=== PATIENT | female | born 1965 | race Two or more races ===

== ENCOUNTER → 2016-05-16 | Day surgery (SDC) | payer OTHER ==
[~2016-05-16] MED LIST: BUPIVACAINE/EPINEPHRINE 0.5% PF 30 ML VIAL ONE; CIPR500T4 PO; FLAG500T PO; HEPARIN SODIUM - IV 10,000 UNITS/10 ML VIAL ONE; LACTATED RINGER'S 1000 ML INJ 1,000 ML ONE; MIDAZOLAM HCL 2 MG/2 ML VIAL ONE; PERC10TA27 PO; PROPOFOL 500 MG/50 ML BTL IV ONE; SODIUM CHLORIDE 0.9% INJ 10 ML ONE; ceFAZolin 2 GM PREMIX 50 ML ONE
--- NOTE | 2016-06-03 15:28 | TN ---
cc: CHATO ARREDONDO M.D. DATE OF SURGERY: 05/16/2016. PREOPERATIVE DIAGNOSIS: Metastatic left breast cancer. POSTOPERATIVE DIAGNOSIS: Metastatic left breast cancer. OPERATIVE PROCEDURE PERFORMED: Right subclavian Infusaport. SURGEON: Chato Arredondo MD. ANESTHESIA: General LMA COMPLICATIONS: None. INDICATIONS FOR THE PROCEDURE: Ms. Goodson is a pleasant 51-year-old female who unfortunately has a metastatic left breast cancer. She requires neoadjuvant chemotherapy. The patient was seen and evaluated by Dr. Zapien who agreed. The patient was referred back for an Infusaport placement. Risks and benefits of Infusaport placement were discussed with her family and they were agreeable. DESCRIPTION OF THE PROCEDURE IN DETAIL: The patient was identified, brought to the operating room and placed supine on the operating table. After adequate general anesthesia was achieved with LMA, the anterior chest and neck were prepped and draped in the standard surgical fashion. Then 0.25% Marcaine was injected in the skin and subcutaneous tissue around the right subclavian vein. The right subclavian vein was then accessed without difficulty using an 18 gauge needle. The guidewire was advanced and followed to the level of the superior vena cava. The dilator was then placed over the guidewire and followed to the level of the superior vena cava using direct fluoroscopy. The guidewire was then removed and the catheter inserted into the introducer. The introducer was then removed. The catheter was placed in the superior vena cava without difficulty. A subcutaneous pocket was then fashioned in the right anterior chest using sharp dissection. The Infusaport was then connected to the tubing with a locking device. The port was tested and found have excellent blood return and easy ability to flush. The port was then placed into the subcutaneous pocket. The port was secured with a 2-0 Prolene suture. The pocket was then injected with additional local anesthetic and closed in two layers using a 4-0 Vicryl. Sterile dressings were applied. The patient tolerated the procedure without any instability or complication. A chest x-ray will be obtained in the recovery room. MD CLOVIS Marcelino/DESTINEY /3:05 PM /3:10 PM
== END | disposition home or self-care (01) ==
LOC: ESDC 06:38
PROVIDERS: ATTEND Surgery Trauma Surgery
DX: C50.912 Malignant neoplasm of unspecified site of left female breast (principal)
CPT/HCPCS: 00532; 36561; 77001; 88305; C1788; J0690; J1644; J2250; J3010; J7120; 88361; J1642

== ENCOUNTER 2016-09-17 12:31 | Emergency (ER) | payer OTHER ==
[~2016-09-17] VITALS: Ht 160 cm; Wt 105.0 kg
[~2016-09-17 12:31] MED LIST changes: +AMBI10TA PO; -BUPIVACAINE/EPINEPHRINE 0.5% PF 30 ML VIAL ONE; -CIPR500T4 PO; +CYCL5TAB PO; -FLAG500T PO; +GABA100C4 PO; -HEPARIN SODIUM - IV 10,000 UNITS/10 ML VIAL ONE; -LACTATED RINGER'S 1000 ML INJ 1,000 ML ONE; -MIDAZOLAM HCL 2 MG/2 ML VIAL ONE; +NORC5TAB PO; -PERC10TA27 PO; -PROPOFOL 500 MG/50 ML BTL IV ONE; -SODIUM CHLORIDE 0.9% INJ 10 ML ONE; +ZANT150T2 PO; -ceFAZolin 2 GM PREMIX 50 ML ONE
[2016-09-17 12:33] VITALS: BP 116/74; PULSE 130; RESP 16; TEMP 98.6; O2SAT 100
[2016-09-17 12:39] VITALS: PULSE 122
--- NOTE | 2016-09-17 12:41 | PD ---
Physical Exam Date Seen by Provider: Sep 17, 2016 Time Seen by Provider: 12:39 Narrative 51 yo female here for pain to left big toe. Injury occurred today. Being treated for breast cancer on chemo. Concern because of the injury and she taking chemo. Nail came off some bit. Pain to the tip. Able to walk. Some pain to the right one as well from the same injury. Vitals are stable in triage. Awaiting bed placement. Data Data Last Documented VS Vital Signs Date Time Temp Pulse Resp B/P Pulse Ox O2 Delivery O2 Flow Rate FiO2 09/17/16 12:33 98.6 130 16 116/74 100 MDM Medical Record Reviewed: Yes Supervised Visit with CL: No Yovany Stover Sep 17, 2016 12:41
[2016-09-17 12:58] VITALS: PULSE 112
--- NOTE | 2016-09-17 13:09 | PD ---
HPI Chief Complaint: Injury Time Seen by Provider: 12:45 Travel History International Travel<30 days: No Contact w/Intl Traveler<30days: No Traveled to known affect area: No History of Present Illness HPI 51-year-old female with history of breast cancer currently receiving chemotherapy presents emergency department for evaluation of left second toe injury prior to arrival. Patient reports she stubbed the toe on a piece of furniture which caused the nailbed to lift and bleed. She reports pain with flexion of the toe. She denies any other injury. Patient's heart rate was noted to be elevated in triage patient reports her heart rate has been elevated at her last several doctors visits. She denies chest pain, palpitations, shortness of breath, dizziness. PFSH Past Medical History Narrative Medical stage 3 breast CA currently on chemotherapy. Hx Anticoagulant Therapy: No Blood Disorders: No Anxiety: Yes Depression: Yes Cancer: No Cardiovascular Problems: No Chemotherapy: Yes Cerebrovascular Accident: No Diabetes: No Diminished Hearing: No Endocrine: No Gastrointestinal Disorders: No Genitourinary: Yes (BLADDER INFECTION) Immune Disorder: No Musculoskeletal: Yes (WEAKNESS TO R SIDE) Neurologic: Yes Psychiatric: Yes Reproductive: No Respiratory: No Migraines: Yes Seizures: Yes ?: Not : 3 Para: 3 Tubal Ligation: Yes Past Surgical History Body Medical Devices: PLATE, SCREW IN SPINE Eye Surgery: Yes (lasik) Gynecologic Surgery: Yes Hysterectomy: No Neurologic Surgery: Yes (PLATE IN SPINE (C3-C6)) Other Surgery: Yes (NECK SURGERY 1998, TUBLAGATION 1989, LASIX 1998) Social History Alcohol Use: Yes (occasional and on holidays) Tobacco Use: No Substance Use: No Allergies-Medications (Allergen,Severity, Reaction): Coded Allergies: Baclofen (Verified Allergy, Mild, Rash, 08/30/16) Reported Meds & Prescriptions Reported Meds & Active Scripts Active Gabapentin 100 Mg Cap 200 Mg PO TID Reported Zantac (Ranitidine HCl) 150 Mg Tab 150 Mg PO BID Ambien (Zolpidem Tartrate) 10 Mg Tab 10 Mg PO HS PRN [place] (Hydrocodone-Acetaminophen) 5-325 mg Tab 1 Tab PO Q8 TO 12 HOURS PRN Flexeril (Cyclobenzaprine HCl) 5 Mg Tab 5 Mg PO TID Review of Systems Except as stated in HPI: all other systems reviewed are Neg General / Constitutional: No: Fever Eyes: No: Visual changes HENT: No: Headaches Cardiovascular: No: Chest Pain or Discomfort Respiratory: No: Shortness of Breath Gastrointestinal: No: Abdominal Pain Genitourinary: No: Dysuria Physical Exam Narrative GENERAL: Well-nourished, well-developed patient. SKIN: Focused skin assessment warm/dry. HEAD: Normocephalic. EYES: No scleral icterus. No injection or drainage. NECK: Supple, trachea midline. No JVD or lymphadenopathy. CARDIOVASCULAR: Regular rate and rhythm without murmurs, gallops, or rubs. Tachycardic heart rate in the 100-112 RESPIRATORY: Breath sounds equal bilaterally. No accessory muscle use. GASTROINTESTINAL: Abdomen soft, non-tender, nondistended. MUSCULOSKELETAL: No cyanosis, or edema. Left foot: Second digit notable swelling and tenderness to palpation, mild/partial nail avulsion, no visible laceration to the nailbed. BACK: Nontender without obvious deformity. No CVA tenderness. Data Data Last Documented VS Vital Signs Date Time Temp Pulse Resp B/P Pulse Ox O2 Delivery O2 Flow Rate FiO2 09/17/16 12:58 112 09/17/16 12:33 98.6 16 116/74 100 Orders Toe (Min 2vws) (09/17/16 ) MDM Medical Decision Making Medical Screen Exam Complete: Yes Emergency Medical Condition: Yes Differential Diagnosis Contusion,toe fracture, toenail avulsion, tachycardia Narrative Course 51-year-old female presents emergency department for evaluation of left second toe injury. Patient stubbed her toe on a piece of furniture causing the nailbed to slightly lift. Patient currently is receiving chemotherapy for stage III breast cancer. Her heart rate was noted to be elevated in triage. Patient reports her heart rate has been elevated over the last several weeks and each doctors visit. She denies chest pain, shortness of breath, palpitations, dizziness. X-ray of left foot reveal no fracture within the toe. This was discussed with patient. Wound care discussed. Strict return precautions and follow-up were discussed. Patient verbalizes understanding and agrees to plan. Diagnosis Primary Impression: Injury of toenail of left foot Qualified Code: S99.922A - Injury of toenail of left foot, initial encounter Referrals: Primary Care Physician Additional Instructions: Keep the area clean and dry. Do not submerge the foot in pools, lakes, or [place]. Follow up for recheck with your doctor. return if you develop new or worsening symptoms such as fever, chills, redness of the site. Disposition: 01 DISCHARGE HOME Condition: Serious Herlinda Gutierrez Sep 17, 2016 13:09
--- NOTE | 2016-09-17 13:29 | RADRPT ---
EXAM DATE/TIME: 09/17/2016 13:18 [place] COMPARISON: No previous studies available for comparison. INDICATIONS : Patient ran left 2nd toe into door today MEDICAL HISTORY : None. SURGICAL HISTORY : None. ENCOUNTER: Initial ACUITY: 1 day PAIN SCORE: 7/10 LOCATION: Left entire 2nd digit FINDINGS: Soft tissue swelling without fracture. CONCLUSION: Soft tissue swelling without fracture. Levi Astorga MD FACR on September 17, 2016 at 13:27 Board Certified Radiologist. This report was verified electronically.
== END 2016-09-17 13:53 | disposition home or self-care (01) ==
LOC: NEPD 12:31
DX: S99.922A Unspecified injury of left foot, initial encounter (principal); C50.919 Malignant neoplasm of unspecified site of unspecified female breast; W22.03XA Walked into furniture, initial encounter
CPT/HCPCS: 73660; 99283

== ENCOUNTER 2016-10-18 13:00 | Observation (INO) | payer OTHER ==
[~2016-10-18] VITALS: Ht 160 cm; Wt 104.7 kg
[~2016-10-18 13:00] MED LIST changes: -AMBI10TA PO; +AMBI5TAB PO; +HYDR-3583 PO; +LACTATED RINGER'S 1000 ML INJ 1,000 ML IV ONE; -NORC5TAB PO; +NORMOSOL R INJ 1,000 ML IV ONE; +ONDANSETRON HCL 4 MG/2 ML VIAL IV PUSH ONE; +PHENYLEPH/NS 1000 MCG/10 ML SYR IV ONE; +PROPOFOL 200 MG/20 ML AMP IV ONE
[2016-10-18] MEDS ORDERED: ceFAZolin 2 GM PREMIX 50 ML ONE (13:52)
[2016-10-18] MEDS: ceFAZolin 2 GM PREMIX 50 ML IV SCH (13:55)
[2016-10-18 14:21] LABS: AUTOMATED NEUTROPHIL # 2.3 TH/MM3 (1.8-7.7); BASOPHIL % 0.6 % (0.0-2.0); EOSINOPHIL # 0.1 TH/MM3 (0-0.4); EOSINOPHIL % 2.9 % (0.0-4.0); HEMATOCRIT 31.4 % (35.0-46.0); HEMO FLAGS DIFF FINAL; LYMPH % 33.5 % (9.0-44.0); LYMPHOCYTE # 1.4 TH/MM3 (1.0-4.8); MEAN CELL VOLUME 73.1 FL (80.0-100.0); MEAN CORPUSCULAR HEMOGLOBIN 22.3 PG (27.0-34.0); MEAN CORPUSCULAR HGB CONC 30.5 % (32.0-36.0); MONO % 8.5 % (0.0-8.0); NEUT % 54.5 % (16.0-70.0); PLATELET COUNT 301 TH/MM3 (150-450); RED CELL DISTRIBUTION WIDTH 20.6 % (11.6-17.2); WHITE BLOOD COUNT 4.2 TH/MM3 (4.0-11.0)
[2016-10-18] MEDS ORDERED: LORA-373 PO (14:28)
[2016-10-18] MEDS ORDERED: POVIDONE IODINE 5% (ANTISEPSIS KIT) 4 APPLICATIONS EACH NARE PRN (14:30)
[2016-10-18] MEDS ORDERED: CHLORHEXIDINE GLUCONATE 2 % 1 PACK (2 CLOTHS) TOPICAL PRN (14:30)
[2016-10-18] MEDS ORDERED: METOPROLOL TARTRATE 25 MG TAB PO PRN (14:30)
[2016-10-18] MEDS ORDERED: LACTATED RINGER'S 1000 ML IV PRN (14:30)
[2016-10-18] MEDS ORDERED: INSULIN HUMAN REGULAR 1,000 UNITS/10 ML VIAL SQ PRN (14:30)
[2016-10-18] MEDS ORDERED: SODIUM CHLORID 0.9% 500 ML IV PRN (14:30)
[2016-10-18] MEDS ORDERED: FAMOTIDINE 20 MG/2 ML VIAL ONE (15:08)
[2016-10-18] MEDS ORDERED: MIDAZOLAM HCL 2 MG/2 ML VIAL ONE ×2 (15:08→19:10)
[2016-10-18] MEDS ORDERED: DEXAMETHASONE SOD PHOS 4 MG/ML VIAL ONE (15:09)
[2016-10-18] MEDS ORDERED: BUPIVACAINE/EPINEPHRINE 0.25% PF 30 ML VIAL INFIL ONE (15:48)
[2016-10-18] MEDS ORDERED: HYDROmorphone HCL PF 2 MG/ML VIAL ONE (16:50)
[2016-10-18] MEDS ORDERED: ceFAZolin INJ 1,000 MG VIAL ONE (17:52)
[2016-10-18] MEDS ORDERED: diphenhydrAMINE HCL 25 MG CAP PO PRN (18:30)
[2016-10-18] MEDS ORDERED: NALOXONE HCL 0.4 MG/ML AMP IV PRN (18:30)
[2016-10-18] MEDS ORDERED: Post-op Orders (for Pharmacy) MISC XX ONE (18:30)
[2016-10-18] MEDS ORDERED: BUPIVACAINE/EPINEPHRINE 0.5% PF 30 ML VIAL INFIL ONE (18:30)
[2016-10-18] MEDS ORDERED: SODIUM CHLORIDE 0.9% FLUSH 5 ML FLUSH IVF PRN (18:30)
[2016-10-18] MEDS ORDERED: ONDANSETRON HCL 4 MG/2 ML VIAL IV PRN (18:30)
[2016-10-18] MEDS ORDERED: ACETAMINOPHEN/HYDROcodone 325 MG/5 MG TAB PO PRN (18:30)
[2016-10-18] MEDS: LACTATED RINGER'S 1000 ML INJ 1,000 ML IV SCH (19:00)
[2016-10-18] MEDS ORDERED: DO NOT ADM ANY ANTICOAGULANT DRUGS PRN (19:45)
[2016-10-18] MEDS ORDERED: *morphine SULFATE 8 MG/ML PERIprocedure ONLY ONE (19:48)
[2016-10-18] MEDS: KETOROLAC TROMETHAMINE 30 MG/ML (IVP) VIAL IVP PRN (20:33)
[2016-10-18] MEDS: MORPHINE SULFATE 4 MG/ML INJ IV PUSH PRN (20:34)
[2016-10-18] MEDS: SODIUM CHLORIDE 0.9% FLUSH 5 ML FLUSH IVF SCH (20:43)
[2016-10-18 20:46] VITALS: BP 137/80; PULSE 92; RESP 18; TEMP 95.4; O2SAT 97
[2016-10-19] VITALS: BP 127/62; PULSE 85; RESP 18; TEMP 97.4; O2SAT 100
--- NOTE | 2016-10-19 00:04 | MP ---
cc: CHATO ARREDONDO M.D. DATE OF SURGERY: 10/18/2016 PREOPERATIVE DIAGNOSIS: Metastatic left breast cancer. Status post neoadjuvant chemotherapy. POSTOPERATIVE DIAGNOSIS: Metastatic left breast cancer. Status post neoadjuvant chemotherapy. PROCEDURE PERFORMED: 1. Right simple prophylactic mastectomy. 2. Removal of right subclavian [id number]-[id number]. 3. Left modified radical mastectomy. SURGEON: Chato Arredondo MD. CAR HEAD LINER INSTALLER: Elidia Duran. ANESTHESIA: General endotracheal anesthesia COMPLICATIONS: None. INDICATIONS FOR PROCEDURE: Ms. Goodson is a very pleasant 51-year-old female who presented with a large left breast cancer with metastatic disease to her axilla. She underwent Wyxnlk-[id number]-Euzb placement of the right subclavian and had neoadjuvant chemotherapy. She completed neoadjuvant chemotherapy and is referred back for mastectomy. The patient was noted to have multifocal disease in the left breast as well as axillary mets at her original diagnosis. She was therefore advised to undergo mastectomy. Because of her strong family history of breast cancer, she requested bilateral mastectomy. The risks and benefits of the procedure was discussed with her and she is agreeable. DETAILS OF PROCEDURE: The patient was identified, brought to the operating room, placed supine on the operating room table. After adequate general endotracheal anesthesia was achieved the anterior chest and axilla was prepped and draped in standard surgical fashion. The patient has very large pendulous breasts. There were therefore elevated up and an elliptical incision was drawn around the base of the breast. 0.25% Marcaine was injected along the proposed incision site. An elliptical incision was then made using a scalpel. Next subcutaneous skin flaps were then raised cephalad to the clavicle, medially to the sternum, inferiorly to the inframammary ridge and laterally to the midaxillary line. When we were raising the superior flap, we identified the [id number] which was grasped and removed in total without any difficulty. The port pocket was also excised with the specimen. Once we did this, dissection proceeded up to the axillary tail where the breast tissue was transected. The specimen was labeled a short stitch superior, long stitch lateral and sent to pathology for analysis. Attention was now directed to closure. A 10-Macedonian Angel-Arias drain was brought through a separate stab wound incision in the right anterior chest. The incision was then closed in three layers using a 2-0 Vicryl, 3-0 Vicryl and 4-0 Vicryl. Sterile dressings were applied, 20 cc of 0.25% Marcaine was injected into the right Angel-Arias drain. Attention was now directed to the left breast. On the left breast a similar technique was used. Again the large pendulous breasts was elevated straight up and the base of the breast was drawn out with a marking pen. An elliptical skin incision was made after anesthetizing the skin and subcutaneous tissue with 0.25% Marcaine. Skin flaps were again raised cephalad to the clavicle, medially to the sternum, inferiorly to the inframammary ridge and lateral to the axillary line. The breast was then dissected up off the pectoralis major muscle using electrocautery Bovie. Axillary tail was then followed into the axilla proper. Axillary tissue was dissected up to the level of the axillary vein. The long thoracic and thoracodorsal dorsal nerves were carefully identified and preserved. The intercostal brachial nerve was sacrificed. All axillary tissue and fat between the nerves and inferior to the vein was then excised with blunt electrocautery dissection. Again care was taken to identify and preserve the long thoracic and thoracodorsal nerves throughout the dissection. Once all the axillary tissue was freed up the entire specimen was sent to pathology as a single specimen. Short stitch was placed superior, long stitch placed lateral in the breast in order to demarcate it. Some palpable axillary tissue was identified deep in the level II zone and this was excised gently using blunt and electrocautery dissection, again with care to identify and preserve the long thoracic and thoracodorsal nerves. This was sent as additional axillary tissue. Once we did this the wound was copiously irrigated with normal saline solution. Two Angel-Arias drains inserted, one in the axilla and one onto the chest wall. Drains secured with 3-0 nylon suture. The skin and subcutaneous tissue was then closed and three layers using a 2-0 Vicryl, 3-0 Vicryl and a 4-0 Vicryl. Sterile dressings were applied. The patient was awakened and brought to recovery in stable condition. MD CLOVIS Marcelino/UDAY /6:27 PM /11:50 PM
[2016-10-19] MEDS: MORPHINE SULFATE 8 MG/ML INJ IV PUSH PRN ×4 (00:44→23:21)
[2016-10-19 04:00] VITALS: BP 124/58; PULSE 107; RESP 18; TEMP 98.1; O2SAT 97
[2016-10-19] MEDS: LACTATED RINGER'S 1000 ML INJ 1,000 ML IV SCH (04:43)
[2016-10-19 08:00] VITALS: BP 119/59; PULSE 114; RESP 18; TEMP 97.9; O2SAT 100
[2016-10-19] MEDS: SODIUM CHLORIDE 0.9% FLUSH 5 ML FLUSH IVF SCH ×2 (09:00→21:40)
[2016-10-19] MEDS: ACETAMINOPHEN/HYDROcodone 325 MG/5 MG TAB PO PRN ×3 (09:45→21:38)
--- NOTE | 2016-10-19 09:51 | HHI.PR ---
Subjective Subjective Notes feels ok, sore, tolerating po, pain controlled with meds Objective Vitals/I&O Vital Signs Date Time Temp Pulse Resp B/P (MAP) Pulse Ox O2 Delivery O2 Flow Rate FiO2 10/19/16 08:00 97.9 114 18 119/59 (79) 100 10/18/16 19:45 Room Air 10/18/16 19:15 2 Labs Laboratory Tests Test 10/18/16 13:45 White Blood Count 4.2 Red Blood Count 4.30 Hemoglobin 9.6 Hematocrit 31.4 Mean Corpuscular Volume 73.1 Mean Corpuscular Hemoglobin 22.3 Mean Corpuscular Hemoglobin Concent 30.5 Red Cell Distribution Width 20.6 Platelet Count 301 Mean Platelet Volume 8.2 Neutrophils (%) (Auto) 54.5 Lymphocytes (%) (Auto) 33.5 Monocytes (%) (Auto) 8.5 Eosinophils (%) (Auto) 2.9 Basophils (%) (Auto) 0.6 Neutrophils # (Auto) 2.3 Lymphocytes # (Auto) 1.4 Monocytes # (Auto) 0.4 Eosinophils # (Auto) 0.1 Basophils # (Auto) 0.0 CBC Comment DIFF FINAL Differential Comment Cardiovascular: Regular Lungs: Clear Abdomen: Non-distended Wound Wound : Wound Location: Chest Appearance: Clean & Dry Dressing: Dry A/P Assessment and Plan POD 1 bilateral mastectomy doing well dc home with [facility] today FU Monday Get Alvarenga MD Oct 19, 2016 09:51
[2016-10-19] MEDS ORDERED: HYDR-3535 PO ×2 (11:06→11:07)
[2016-10-19 12:00] VITALS: BP 96/64; PULSE 101; RESP 18; TEMP 97.9; O2SAT 98
[2016-10-19] MEDS: KETOROLAC TROMETHAMINE 30 MG/ML (IVP) VIAL IVP PRN (15:05)
[2016-10-19 16:00] VITALS: BP 139/65; PULSE 99; RESP 18; TEMP 97.7; O2SAT 97
--- NOTE | 2016-10-19 17:15 | EKG ---
Date Performed: 10/18/2016 Time Performed: 14:53:48 PTAGE: 51 years EKG: Sinus rhythm Since previous tracing, no significant change noted NORMAL ECG PREVIOUS TRACING : 11/21/2007 13.43 DOCTOR: Nancy Pritchard Interpretating Date/Time 10/19/2016 17:08:18
[2016-10-19] MEDS: MORPHINE SULFATE 4 MG/ML INJ IV PUSH PRN (18:30)
[2016-10-19 20:00] VITALS: BP 133/61; PULSE 105; RESP 20; TEMP 97; O2SAT 97
[2016-10-19] MEDS ORDERED: ZOLPIDEM TARTRATE 5 MG TAB PO PRN (23:15)
[2016-10-20] VITALS: BP 135/67; PULSE 94; RESP 20; TEMP 97; O2SAT 99
[2016-10-20] MEDS: LACTATED RINGER'S 1000 ML INJ 1,000 ML IV SCH ×2 (00:20→10:20)
[2016-10-20] MEDS: ACETAMINOPHEN/HYDROcodone 325 MG/5 MG TAB PO PRN ×3 (04:03→13:38)
[2016-10-20] MEDS: MORPHINE SULFATE 8 MG/ML INJ IV PUSH PRN ×3 (05:18→12:39)
[2016-10-20 08:00] VITALS: BP 135/80; PULSE 109; RESP 18; TEMP 97.2; O2SAT 98
[2016-10-20] MEDS: SODIUM CHLORIDE 0.9% FLUSH 5 ML FLUSH IVF SCH (09:00)
[2016-10-20] MEDS: ceFAZolin 2 GM PREMIX 50 ML IV SCH (10:21)
[2016-10-20 12:00] VITALS: BP 126/74; PULSE 100; RESP 17; TEMP 97.8; O2SAT 97
--- NOTE | 2016-10-20 15:35 | HHI.DS ---
Discharge Summary Admission Date Oct 18, 2016 at 18:27 Discharge Date: Oct 20, 2016 Admitting Diagnosis Brief History Breast cancer s/p bilateral mastectomy CBC/BMP: 10/18/16 1345 Significant Findings Laboratory Tests Test 10/18/16 13:45 Hemoglobin 9.6 GM/DL (11.6-15.3) Hematocrit 31.4 % (35.0-46.0) Mean Corpuscular Volume 73.1 FL (80.0-100.0) Mean Corpuscular Hemoglobin 22.3 PG (27.0-34.0) Mean Corpuscular Hemoglobin Concent 30.5 % (32.0-36.0) Red Cell Distribution Width 20.6 % (11.6-17.2) Monocytes (%) (Auto) 8.5 % (0.0-8.0) PE at Discharge Resting in bed; no issues Cardio: RRR Resp: CTAB Abd: soft non tender Chest: bilateral mastectomy incisions with dressings in place; DIEGO x2 on LEFT; x1 on RIGHT Hospital Course This is a 51-year-old female with breast cancer status post bilateral mastectomy. Her pain was controlled using oral mason medications. She was able to tolerate a regular diet. The patient stayed 1 extra night due to pain. C was arranged. The patient will follow up with Dr. Alvarenga tomorrow for pathology results. Pt Condition on Discharge: Good Discharge Disposition: Disch w/ Home Health Serv Discharge Instructions DIET: Follow Instructions for: As Tolerated, No Restrictions Additional Diet Instructions: no cookies for breakfast Activities you can perform: Regular-No Restrictions Ivone Patton Oct 20, 2016 15:35
== END 2016-10-20 15:03 | disposition home health service (06) ==
LOC: HSDC 13:00 → HSDI 18:27 → N07B 19:58
PROVIDERS: ADMIT Surgery Trauma Surgery; ATTEND Surgery Trauma Surgery
DX: C50.912 Malignant neoplasm of unspecified site of left female breast (principal); Z90.13 Acquired absence of bilateral breasts and nipples; Z92.21 Personal history of antineoplastic chemotherapy; Z01.810 Encounter for preprocedural cardiovascular examination
CPT/HCPCS: 00404; 19307; 36590; 85025; 86850; 86900; 86901; 88309; 93005; 94150; 96361; 96374; 96375; 96376; G0378; J0690; J1100; J1170; J1885; J2250; J2270; J2370; J2405; J3010; J7120; 88307

== ENCOUNTER 2017-01-13 17:57 | Emergency (ER) | payer OTHER ==
[~2017-01-13] VITALS: Ht 160 cm; Wt 105.0 kg
[~2017-01-13 17:57] MED LIST changes: +HYDR-3535 PO; -HYDR-3583 PO; -LACTATED RINGER'S 1000 ML INJ 1,000 ML IV ONE; +LORA0.5T PO; -NORMOSOL R INJ 1,000 ML IV ONE; -ONDANSETRON HCL 4 MG/2 ML VIAL IV PUSH ONE; -PHENYLEPH/NS 1000 MCG/10 ML SYR IV ONE; -PROPOFOL 200 MG/20 ML AMP IV ONE
[2017-01-13 18:00] VITALS: BP 156/96; PULSE 88; RESP 14; TEMP 98.4; O2SAT 98
[2017-01-13] MEDS ORDERED: HYDR-3583 PO (18:54)
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
[2017-01-13] MEDS ORDERED: ACETAMINOPHEN 500 MG CPLT PO ONE (19:30)
[2017-01-13] MEDS ORDERED: LIDOCAINE HCL 1% 50 ML VIAL INFIL ONE (19:30)
[2017-01-13] MEDS ORDERED: TETANUS/DIPHTHERIA TOXOID ADULT 0.5 ML VIAL IM ONE (19:30)
--- NOTE | 2017-01-13 19:36 | RADRPT ---
EXAM DATE/TIME: 01/13/2017 19:18 [facility] COMPARISON: No previous studies available for comparison. INDICATIONS : Head pain from fall. RADIATION DOSE: 56.35 CTDIvol (mGy) MEDICAL HISTORY : Seizures. Carcinoma, breast. SURGICAL HISTORY : Mastectomy, bilateral. Tubal ligation.Fusion, cervical. ENCOUNTER: Initial ACUITY: 1 day PAIN SCALE: 10/10 LOCATION: Right cranial TECHNIQUE: Multiple contiguous axial images were obtained of the head. Using automated exposure control and adj ustment of the mA and/or kV according to patient size, radiation dose was kept as low as reasonably a chievable to obtain optimal diagnostic quality images. DICOM format image data is available electro nically for review and comparison. FINDINGS: CEREBRUM: The ventricles are normal for age. No evidence of midline shift, mass lesion, hemorrhage or acute in farction. No extra-axial fluid collections are seen. POSTERIOR FOSSA: The cerebellum and brainstem are intact. The 4th ventricle is midline. The cerebellopontine angle i s unremarkable. EXTRACRANIAL: The visualized portion of the orbits is intact. SKULL: The calvaria is intact. No evidence of skull fracture. CONCLUSION: Negative noncontrast CT brain. Chano Patel MD on January 13, 2017 at 19:34 Board Certified Radiologist. This report was verified electronically.
--- NOTE | 2017-01-13 19:50 | RADRPT ---
EXAM DATE/TIME: 01/13/2017 19:21 [facility] COMPARISON: CT BRAIN W/O CONTRAST, January 13, 2017, 19:18. INDICATIONS : Right side facial pain lateral to orbit. RADIATION DOSE: 26.35 CTDIvol (mGy) MEDICAL HISTORY : Seizures. Carcinoma, breast. SURGICAL HISTORY : Mastectomy, bilateral. Tubal ligation.Fusion, cervical. ENCOUNTER: Initial ACUITY: 1 day PAIN SCORE: 10/10 LOCATION: Right orbit TECHNIQUE: Volumetric scanning of the facial bones was performed. Using automated exposure control and adjustme nt of the mA and/or kV according to patient size, radiation dose was kept as low as reasonably achiev able to obtain optimal diagnostic quality images. DICOM format image data is available [employer] for review and comparison. FINDINGS: ORBITS: The orbital and infraorbital osseous structures are intact. The retroconal structures have a normal configuration. No radiopaque foreign bodies are seen. NASAL BONE: The nasal bone and maxillary spine are intact ZYGOMATIC ARCHES: Symmetric without evidence of fracture. SINUSES: The maxillary, ethmoid and frontal sinuses are intact. No air-fluid levels seen. NASAL CAVITY: The nasal septum is intact and midline. The lacrimal ducts are intact. INTRACRANIAL: No intracranial air seen. CRIBIFORM PLATE: Grossly intact. CONCLUSION: Laceration lateral right zygomatic region without repeat foreign body. The facial bones are intact.. Chano Patel MD on January 13, 2017 at 19:46 Board Certified Radiologist. This report was verified electronically.
--- NOTE | 2017-01-13 19:56 | RADRPT ---
EXAM DATE/TIME: 01/13/2017 19:20 [facility] COMPARISON: No previous studies available for comparison. INDICATIONS : Neck pain due to fall. RADIATION DOSE: 25.12 CTDIvol (mGy) MEDICAL HISTORY : Seizures. Carcinoma, breast. SURGICAL HISTORY : Mastectomy, bilateral. Tubal ligation.Fusion, cervical. ENCOUNTER: Initial ACUITY: 1 day PAIN SCALE: 10/10 LOCATION: Bilateral neck region. TECHNIQUE: Volumetric scanning of the cervical spine was performed. Multiplanar reconstructions in the sagittal, coronal and oblique axial planes were performed. Using automated exposure control and adjustment o f the mA and/or kV according to patient size, radiation dose was kept as low as reasonably achievable to obtain optimal diagnostic quality images. DICOM format image data is available electronically f or review and comparison. FINDINGS: There is straightening of the cervical lordosis. Mild curvature of the cervical spine convex towards the right. Anterior cervical plate is present at C3-C6. There is bony fusion at these levels. No evidence of spondylolisthesis. Anterior and posterior paravertebral ossification is present at C6-7. The facet joints remain in normal alignment. There is multilevel fusion of the facet joints. [place] ntoaxial articulation is intact. No fractures seen. CONCLUSION: No evidence of fracture or spondylolisthesis. Fusion with anterior plate C3-6. Chano Patel MD on January 13, 2017 at 19:50 Board Certified Radiologist. This report was verified electronically.
[2017-01-13] MEDS ORDERED: KETOROLAC TROMETHAMINE 60 MG/2 ML (IM) VIAL IM ONE (20:00)
[2017-01-13] MEDS ORDERED: CEPH-460 PO (20:49)
[2017-01-24] MEDS ORDERED: HYDR-3583 PO (10:43)
[2017-01-24] MEDS ORDERED: CYCL5TAB PO (10:44)
== END 2017-01-13 21:02 | disposition home or self-care (01) ==
LOC: NEPD 17:57
DX: S01.411A Laceration without foreign body of right cheek and temporomandibular area, initial encounter (principal); W01.198A Fall on same level from slipping, tripping and stumbling with subsequent striking against other object, initial encounter; F32.9 Major depressive disorder, single episode, unspecified; C50.912 Malignant neoplasm of unspecified site of left female breast; Z85.3 Personal history of malignant neoplasm of breast; Z90.13 Acquired absence of bilateral breasts and nipples; Z79.899 Other long term (current) drug therapy
CPT/HCPCS: 12011; 70450; 70486; 72125; 90471; 90714; 96372; 99285; J1885